=== PATIENT | female | born 2000 | race Caucasian/White ===

== ENCOUNTER 2022-11-28 08:02 | Emergency (ER) | payer BC, SELFPAY ==
--- NOTE | ~2022-11-28 | CT_ITS ---
EXAMINATION: CTA BRAIN/CAROTID DATE: 11/28/2022 09:17 INDICATION: Headache. Neck pain. Hand tingling. Vertebral artery dissection. TECHNIQUE: Computed tomographic angiography (CTA) of the head and neck was performed with 100 mL Omni paque-350 intravenous contrast. Multiplanar reconstructions and maximum intensity projection 3D-recon structions of the carotid arteries and of the intracranial arteries were created by the technologist on a separate workstation. Precontrast CT of the head was also obtained. Automated exposure control and iterative reconstruction technique were employed.The dose-length product was 1770.86 mGy-cm. COMPARISON: None. FINDINGS: Carotid arteries: Aortic arch is normal in caliber with no evident atherosclerotic plaque or dissection. There is no ev ident atherosclerotic plaque with 0% stenosis of the right and left carotid bulbs relative to normal distal artery lumen diameter (NASCET criteria). The left vertebral artery is dominant with correspond ing decreased size of the right-sided transverse foramina relative to the left. No evident vertebral artery stenosis or dissection. Cervical soft tissues are unremarkable. Visualized portions of the upp er lungs are clear. Superior mediastinum is unremarkable with small residual thymic tissue in the ant erior mediastinum. Likely positional straightening of the normal cervical lordosis. Cervical spine is otherwise unremarkable. Head: No acute intracranial hemorrhage, acute infarction or abnormal extra axial fluid collection. Ventricl es are normal and symmetric. No mass/mass effect. No abnormally enhancing brain lesions. The orbits, paranasal sinuses and mastoid air cells are normal. Intracranial arteries There is no hemodynamically significant stenosis in the vertebral, basilar and internal carotid arter ies. Left vertebral artery is dominant. There are no aneurysms or dissections identified. Both A1 an d P1 segments are patent. There are also patent anterior communicating and bilateral posterior to ind icating arteries. Cerebral arterial arborization appears symmetric. IMPRESSION: 1. 0% stenosis of the right and left carotid bulbs relative to normal distal artery lumen diameter (N ASCET criteria). 2. Left vertebral artery is dominant. Vertebral arteries are otherwise unremarkable with no evident s tenosis or dissection. 3. Normal brain and cerebral CT angiogram. Reviewed, dictated and finalized at location A. IMPRESSION: 1. 0% stenosis of the right and left carotid bulbs relative to normal distal ar [place] lumen diameter (NASCET criteria). 2. Left vertebral artery is dominant. Vertebral arteries are otherwise unremark able with no evident stenosis or dissection. 3. Normal brain and cerebral CT angiogram.
[2022-11-28 08:06] VITALS: BP 133/89; PULSE 102; RESP 18; TEMP 36.4; O2SAT 100
[2022-11-28 08:45] LABS: Basophils Percent Auto 0.4 % (0.2-1.2); Eosinophils Absolute Auto 0.2 K/mm3 (0-0.3); Eosinophils Percent Auto 1.9 % (0-4.4); Hematocrit 40.9 % (37.0-47.0); Hemoglobin 13.4 g/dL (12.0-15.0); Immature Granulocyte Absolute 0.06 K/mm3 (0.00-0.031); Immature Granulocyte Percent A 0.6 % (0-0.5); Lymphocytes Absolute Auto 1.97 K/mm3 (0.9-3.2); Lymphocytes Percent Auto 18.7 % (18.3-44.2); Mean Corpuscular HGB Conc 32.8 g/dl (32-36); Mean Corpuscular Hemoglobin 29.1 pg (26-34); Mean Corpuscular Volume 88.9 fl (80-100); Mean Platelet Volume 9.4 fl (7.4-10.4); Monocytes Absolute Auto 0.8 K/mm3 (0.1-0.6); Monocytes Percent Auto 7.1 % (2.6-8.5); Neutrophils Absolute Auto 7.5 K/mm3 (1.3-6.7); Neutrophils Percent Auto 71.3 % (45.5-73.1); Platelet Count Result 318 k/mm3 (150-375); Red Cell Distribution Width 12.9 % (11.5-14.5); White Blood Count 10.6 K/mm3 (4.5-10.0)
[2022-11-28 08:51] LABS: Anion Gap 7 mmol/L (8-16); Blood Urea Nitrogen 10 mg/dL (7-17); Calcium 8.8 mg/dL (8.4-10.2); Carbon Dioxide 26 mmol/L (22-30); Chloride 105 mmol/L (98-107); Estimated CRCL calculation 171 ml/min; Estimated Glomerular Filt Rate > 60; Glucose 120 mg/dL (65-110); Sodium 138 mmol/L (137-145)
[2022-11-28 08:56] LABS: Prothrombin Time 13.1 Seconds (11.1-14.7)
[2022-11-28 08:57] LABS: Partial Thromboplastin Time 26.1 SECONDS (22.3-36.8)
--- NOTE | 2022-11-28 11:12 | ED.GENADULT ---
HPI - General Adult General Chief complaint: Neck Pain/Injury Stated complaint: neck pain Time Seen by Provider: 11/28/22 08:05 History of Present Illness HPI narrative: Patient is a 22-year-old female who presents ER with neck pain. Reports several days ago she used her hand to grab her chin and twist her neck to pop it. After popping it she developed dizziness with some blurred vision and some tingling down the left side of her body that persisted for the rest of the day. She has since improved and has no change in vision and no neurologic symptoms. She reports she continues to have pain in her neck. She reports some chronic numbness in bilateral hands and she is being worked up for carpal tunnel syndrome. She underwent a nerve conduction study yesterday. Denies fevers or chills or sweats. No chest pain or chest pressure. Related Data Home Medications Medication Instructions Recorded Confirmed No Home Medications 11/28/22 11/28/22 Allergies Allergy/AdvReac Type Severity Reaction Status Date / Time clindamycin Allergy Severe Anaphylaxis Verified 11/28/22 08:33 Sulfa (Sulfonamide Allergy Severe Anaphylaxis Verified 11/28/22 08:33 Antibiotics) bee venom protein (honey bee) Allergy Unknown Unknown Verified 11/28/22 08:09 Review of Systems Constitutional: Constitutional: Denies chills, Denies fatigue and Denies fever(s) Eyes: Eyes: Denies change in vision and Denies photophobia ENT: Reports dizziness, Denies nasal congestion and Denies sore throat Respiratory: Respiratory: Denies cough and Denies dyspnea Musculoskeletal: Musculoskeletal: Denies arthralgias and Denies joint swelling Neurologic: Denies confusion, Reports dizziness, Denies focal weakness and Denies numbness Comments: Left-sided tingling PMFSH Past Medical History Medical History (Updated 11/28/22 @ 11:22 by Jose Wray MD) Depression Insomnia Surgical History Surgical History (Updated 11/28/22 @ 11:22 by Jose Wray MD) No pertinent past surgical history Exam Narrative: GENERAL: Well-appearing, morbidly obese, and in no acute distress. HEAD: Normocephalic, atraumatic. ENT: Mucous membranes moist. NECK: Supple. Tenderness to the paraspinal musculature of the cervical spine. No limitation range of motion. CHEST: Clear to auscultation. No respiratory distress. HEART: Regular rate and rhythm. Normal peripheral pulses. EXTREMITIES: Normal range of motion. No edema. SKIN: Warm, dry, no rash. NEURO: No focal deficits. Sharp and soft sensation intact. Alert and oriented x3. PSYCH: Normal mood and affect. Course Course Emergency Course: Patient resting comfortably. Informed of results. Patient reassured. She has anti-inflammatories muscle lectures at home she has been taking and I encouraged her to continue those. Vital Signs Vital signs: Vital Signs Temperature 97.6 F 11/28/22 08:06 Pulse Rate 102 H 11/28/22 08:06 Respiratory Rate 18 11/28/22 08:06 Blood Pressure 133/89 11/28/22 08:06 Pulse Oximetry 100 11/28/22 08:06 Temperature 97.6 F 11/28/22 08:06 Pulse Rate 102 H 11/28/22 08:06 Respiratory Rate 18 11/28/22 08:06 Blood Pressure 133/89 11/28/22 08:06 Pulse Oximetry 100 11/28/22 08:06 Medical Decision Making Vital Signs Vital Signs: Vital Signs Temperature 97.6 F 11/28/22 08:06 Pulse Rate 102 H 11/28/22 08:06 Respiratory Rate 18 11/28/22 08:06 Blood Pressure 133/89 11/28/22 08:06 Pulse Oximetry 100 11/28/22 08:06 Temperature 97.6 F 11/28/22 08:06 Pulse Rate 102 H 11/28/22 08:06 Respiratory Rate 18 11/28/22 08:06 Blood Pressure 133/89 11/28/22 08:06 Pulse Oximetry 100 11/28/22 08:06 Lab Data 11/28/22 08:29 11/28/22 08:29 Labs: Lab Results 11/28/22 Range/Units 08:29 WBC 10.6 H (4.5-10.0) K/mm3 RBC 4.60 (4.2-5.4) M/mm3 Hgb 13.4 (12.0-15.0) g/dL Hct 4
[2022-11-28 11:23] VITALS: BP 138/72; PULSE 86; RESP 18; O2SAT 99
== END 2022-11-28 11:25 | disposition home or self-care (01) ==
PROVIDERS: Emergency Provider Emergency Medicine
DX: S16.1XXA Strain of muscle, fascia and tendon at neck level, initial encounter (principal); X50.0XXA Overexertion from strenuous movement or load, initial encounter
CPT/HCPCS: 36415; 70496; 70498; 80048; 81025; 85025; 85610; 85730; 99284; Q9967

== ENCOUNTER 2023-06-11 07:50 | Outpatient (CLI) | payer BC, SELFPAY ==
[2023-06-11 08:19] LABS: Hematocrit 43.8 % (37.0-47.0); Hemoglobin 14.1 g/dL (12.0-15.0)
[2023-06-11 08:30] LABS: Alanine Aminotransferase 39 U/L (6-35); Albumin Level 4.1 g/dL (3.5-5.1); Alkaline Phosphatase 80 U/L (38-126); Amylase 60 U/L (30-110); Aspartate Amino Transferase 28 U/L (14-36); Bilirubin,Total 0.6 mg/dL (0.2-1.3); Lipase 34 U/L (23-300)
[2023-06-11 08:31] LABS: Anion Gap 13 mmol/L (8-16); Blood Urea Nitrogen 12 mg/dL (7-17); Calcium 9.2 mg/dL (8.4-10.2); Carbon Dioxide 25 mmol/L (22-30); Chloride 102 mmol/L (98-107); Estimated Glomerular Filt Rate > 60; Glucose 106 mg/dL (65-110); Potassium 3.9 mmol/L (3.4-5.0); Prothrombin Time 13.3 Seconds (11.1-14.7); Sodium 140 mmol/L (137-145)
[2023-06-11 08:32] LABS: Partial Thromboplastin Time 26.5 SECONDS (22.3-36.8)
== END 2023-06-11 07:51 | disposition home or self-care (01) ==
LOC: ANHSURGERY 07:57
PROVIDERS: Anesthesiology; Visit Provider Surgery
DX: K74.00 Hepatic fibrosis, unspecified (principal); K82.8 Other specified diseases of gallbladder; D64.9 Anemia, unspecified
CPT/HCPCS: 36415; 80048; 80076; 82150; 83690; 85014; 85018; 85610; 85730; 86850; 86900; 86901

== ENCOUNTER 2023-06-18 01:13 | Day surgery (SDC) | payer BC, SELFPAY ==
[2023-06-06 15:38] VITALS: BMI 43.5
--- NOTE | 2023-06-06 15:52 | PC.NURSE ---
Report to the Outpatient Waiting Room, entrance under the green pavilion located off [facility], at time 12:15 on date 06/18/23. Planned Procedure Time: 2:15. Time changes happen often and if your time is changed the preop area will call you the afternoon before. - You and your visitor will be asked to self-screen and do not enter if you have any COVID symptoms. - A mask is optional within the hospital at this time. Patients may have clear liquids (water, carbonated beverages, clear teas, apple juice) until 3 hours prior to surgery (11:15) with a maximum of 20 ounces. - No food from midnight until time of surgery Take the following medications with a SIP of water the morning of surgery: NONE DO NOT STOP ANY OF YOUR OTHER PRESCRIPTION MEDICATIONS PRIOR TO SURGERY ?EXCEPT THE FOLLOWING Medications to discontinue per physician: VITAMINS/SUPPLEMENTS Date to take last dose: 06/14/23 Please no make-up, nail guyanese, hairspray, perfume, deodorant, or body powder the day of surgery. No jewelry (including any body piercings) or valuables the day of surgery, leave them at home. Please take a shower or bath the night before, or the morning of, surgery with an antibacterial soap. Wear comfortable, loose fitting clothing. - Jewelry must be removed prior to entering the operating room. Rings and piercings that are not removed may be cut off. - The hospital will not accept responsibility for valuables. - Please leave all valuables, including medications, at home the day of surgery. If you are going home after surgery, a licensed electric lift truck driver must drive you home. - NO public transportation without another adult if you receive anesthesia. - We recommend that an adult stay with you for 24 hours following discharge. - We also recommend that you do not drive, make important decision, drink alcoholic beverages, or take any drugs that were not prescribed by your health care provider for at least 24 hours after your discharge time. Follow any additional instructions given to you from your surgeon. If you or anyone in your household have experienced Covid symptoms in the past week, please notify your surgeon or the nurse liaison at the phone number below for possible testing. Telephone instructions given to PT - KALPESH AVILEZ and asked if any additional questions and then verbalized understanding. Patient advised to call surgeon office or pre surgery nurse liaison [phone] if any additional questions.
--- NOTE | 2023-06-17 16:00 | WPDANESEPPF ---
Anes - Initial Pre Proc Eval Procedure: Operation Date: 06/18/23 07:30 Proposed Procedures p Laparoscopic Cholecystectomy, Davinci Assisted - Lei Conde DO Date/Time: 06/17/23 16:00 Surgeon: Lei Conde DO Pre Op Diagnosis: biliary dyskinesia Patient Data Age: 23 Gender: F Height: 1.68 m Weight: 122.5 kg Allergies Allergy/AdvReac Type Severity Reaction Status Date / Time clindamycin Allergy Severe Anaphylaxis Verified 06/06/23 15:37 Sulfa (Sulfonamide Allergy Severe Anaphylaxis Verified 06/06/23 15:37 Antibiotics) bee venom protein (honey bee) Allergy Intermediate swelling/ra Verified 06/18/23 06:08 Home Medications Medication Instructions Recorded Confirmed Type lisdexamfetamine 50 mg capsule 50 mg PO DAILY 06/03/23 06/18/23 History (Vyvanse) ondansetron HCl 4 mg tablet 4 mg PO Q8H PRN Nausea And Vomiting 06/03/23 06/18/23 History prochlorperazine maleate 5 mg 5 mg PO Q8H PRN Nausea And Vomiting 06/03/23 06/18/23 History tablet ferrous sulfate 325 mg (65 mg 325 mg PO DAILY 06/06/23 06/18/23 History iron) tablet (Iron (ferrous sulfate)) Patient hx anesthesia problems: none Family hx anesthesia problems: none Results Review: All pre-operative results and documents have been reviewed as part of the pre-operative evaluation. PMFSH Past Medical History Medical History (Updated 06/18/23 @ 06:53 by Federico Hair DO) ADHD Anxiety Depression Dysautonomia Fatty liver GERD (gastroesophageal reflux disease) Insomnia MAHESH (obstructive sleep apnea) POTS (postural orthostatic tachycardia syndrome) PTSD (post-traumatic stress disorder) Small fiber neuropathy Surgical History Surgical History (Updated 06/03/23 @ 13:30 by Tamika Vasquez MA) Hx of appendectomy Family History Family History (Updated 06/03/23 @ 13:31 by Tamika Vasquez MA) Other Cancer Diabetes mellitus Heart disease Hypertension Social History Social History (Updated 06/03/23 @ 13:32 by Tamika Vasquez MA) Smoking status: Never smoker Alcohol intake: current Alcohol use details: 1/MONTH Substance use: never Substance use type: does not use Living arrangements: alone Occupation/Education: occupation 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 Informed Consent: The patient's anesthetic plan and its attendant risks and benefits were discussed with the patient/family/POA. Questions were solicited and answers provided to the satisfaction of the patient/family/POA.
[2023-06-18] VITALS (8 sets, daily range): BP systolic 105–135; BP diastolic 51–79; PULSE 78–107; RESP 12–20; TEMP 36.3–36.9; O2SAT 97–100
[2023-06-18] MEDS: LACTATED RINGERS 1,000 ML 30 ML IV CONT ×2 (06:35→08:33)
[2023-06-18] MEDS: INDOCYANINE GREEN 25 MG VIAL WITH DILUENT 3.75 MG IV PUSH (06:47)
[2023-06-18] MEDS: KETOROLAC 15 MG/ML VIAL (*BKC) IV PUSH (06:50)
--- NOTE | 2023-06-18 07:06 | WPDHPUPDATE1 ---
History and Physical Update Update Date/Time: 06/18/23 07:06 History and Physical has been reviewed, including an updated exam of the patient. There are NO changes in the patient's condition. I did discuss with patient that plan will change to proceeding with Laparoscopic cholecystectomy, da Angeles assisted. The assessment and plan is otherwise unchanged. Risks, benefits, and alternatives have been discussed and questions answered. Patient agrees to proceed with procedure.
[2023-06-18] MEDS: ceFAZolin 3 GM/D5W 100 ML 100 ML IVPB (07:23)
--- NOTE | 2023-06-18 08:38 | W.PM.PROC2 ---
Procedure Note - Detailed Date of Procedure 06/18/23 Pre-op Diagnosis biliary dyskinesia Post-op Diagnosis Same Procedure Performed 1. Laparoscopic cholecystectomy with cholangiography, da Angeles assisted 2. Interpretation of cholangiography Surgeon Lei Conde, DO Anesthesia General and Local (0.5% bupivacaine with epi) Indications This is a 23-year-old woman who presented with intermittent epigastric abdominal pain with nausea and vomiting over the past month. She had been to the emergency department twice with symptoms. Ultrasound was negative for gallstones. She then subsequently underwent HIDA scan which showed a poor gallbladder ejection fraction at 1%. Discussions were made with the patient about treatment options and decision was made to proceed with laparoscopic cholecystectomy, da [place] assisted possible open. Findings Robotic assisted laparoscopic cholecystectomy was performed. Indocyanine green was administered intravenously about 1 hour prior to surgery. Near infrared fluorescence imaging was used during the procedure to identify the cystic duct and common bile duct. This allowed me to safely identify the critical view of safety and prevent injuring any other surrounding structures. The gallbladder was slightly dilated but did not contain any gallstones. The cystic duct appeared normal in size. No other intra-abdominal abnormalities were noted. The gallbladder was removed and sent to the lab for pathology. Description of Procedure Procedure as well as risks, benefits, and alternatives were discussed with the patient. Written consent was obtained and placed in chart prior to procedure. 1.5 mL of indocyanine green was given intravenously in preop. Patient was brought back to surgical suite. She was placed supine on operating table. Time-out was done to confirm patient and procedure. She was then intubated by the anesthesia department. Her abdomen was then prepped and draped in sterile fashion using chlorhexidine prep. 0.5% bupivacaine was infiltrated locally at the site of each port placement. An 8 mm incision was made just superior to the umbilicus and a 5 mm Optiview trocar was then advanced through the abdominal layers under direct visualization. Once inside the abdominal cavity, carbon dioxide insufflation was used to create a pneumoperitoneum. The camera was inserted and the abdomen was inspected. No mediated abnormalities were noted. The patient was placed in 10? reverse Trendelenburg position and rotated 10? to the left. Two 8 mm incisions were made in the right lateral abdomen and 2 8 mm trocars were inserted under direct visualization. A 8 mm incision was made in the left lateral abdomen and a 8 mm trocar was inserted under direct visualization. The 5 mm Optiview trocar was then removed and another 8 mm trocar was inserted in its place. The robotic arms were then brought up to the patient's bedside and secured to each port. The camera and instruments were inserted. I then moved over to the robotic consult to take control of the camera and instruments. The gallbladder was grasped at the fundus and retracted cephalad. The infundibulum of the gallbladder was then grasped and retracted laterally. Hook electrocautery was then used to carefully dissect around the neck of the gallbladder. The cystic duct was identified and a window was created around it using hook electrocautery. The cystic artery was also identified and a window was created behind it using hook electrocautery. Critical view of safety was identified visualizing the cystic duct running directly into the neck of the gallbladder and the cystic artery running directly into the wall the gallbladder. The camera view was switched to firefly mode and the indocyanine green within the gallbladder and cystic duct was clearly visualized. No other structures were noted running into this region and there did not appear to be any obstruction of the cystic duct impeding
[2023-06-18] MEDS: fentaNYL CITRATE INJ (*CRX) 100 MCG/2 ML VIAL 25 MCG IV PUSH ×4 (09:09→09:22)
[2023-06-18] MEDS: oxyCODONE HCL (*CRX) 5 MG TAB IR PO (09:39)
== END 2023-06-18 10:30 | disposition home or self-care (01) ==
PROVIDERS: Visit Provider Surgery
PROC: 0FT44ZZ Resection of Gallbladder, Percutaneous Endoscopic Approach (ICD-10-PCS; CPT 47562; principal; 2023-06-18 07:30)
DX: K81.1 Chronic cholecystitis (principal); K82.8 Other specified diseases of gallbladder; F41.9 Anxiety disorder, unspecified; F32.A Depression, unspecified; F90.9 Attention-deficit hyperactivity disorder, unspecified type; K21.9 Gastro-esophageal reflux disease without esophagitis; G47.00 Insomnia, unspecified; G47.33 Obstructive sleep apnea (adult) (pediatric); F43.10 Post-traumatic stress disorder, unspecified; G90.A Postural orthostatic tachycardia syndrome [POTS]; G90.1 Familial dysautonomia [Riley-Day]; E66.9 Obesity, unspecified; Z68.41 Body mass index [BMI] 40.0-44.9, adult; Z80.9 Family history of malignant neoplasm, unspecified; Z82.49 Family history of ischemic heart disease and other diseases of the circulatory system
CPT/HCPCS: 47563; 74300; S2900; 88304; A9270; J0690; J1100; J1170; J1885; J2250; J2405; J2704; J3010; J7030; J7120